=== PATIENT | male | born 1970 | race African-American/Black ===

== ENCOUNTER 2017-08-23 18:54 | Emergency (ER) | payer BC, OTHER ==
[2017-08-23] MEDS ORDERED: Ketorolac Tromethamine 30 MG/ML VIAL ONE (20:19)
[2017-08-23] MEDS ORDERED: Ciprofloxacin 500 MG TAB ONE (20:50)
[2017-08-23] MEDS ORDERED: Ondansetron ODT 4 MG TAB ONE (20:56)
== END 2017-08-23 21:06 | disposition home or self-care (01) ==
LOC: ERS 18:54
DX: H60.23 Malignant otitis externa, bilateral (principal); M10.9 Gout, unspecified; I10 Essential (primary) hypertension; F41.9 Anxiety disorder, unspecified; Z79.899 Other long term (current) drug therapy
CPT/HCPCS: 96374; J1885; Q0162